=== PATIENT | female | born 1980 | race Caucasian/White ===

== ENCOUNTER 2019-03-13 13:17 | Inpatient (IN) | payer MEDICARE, MEDICAID ==
[~2019-03-13] VITALS: Ht 162.6 cm; Wt 68.7 kg
[~2019-03-13 13:17] MED LIST: FLUT16H NASAL; LAMO100 PO; LEVO25TA4 PO; QUET300T2 PO
[2019-03-13 14:23] LABS: BASOPHILS % (AUTO) 0.7 % (0.0-2.0); EOSINOPHILS % (AUTO) 0.5 % (1.0-6.0); HEMATOCRIT 47.4 % (36-46); HEMOGLOBIN 15.9 g/dL (12.0-16.0); LYMPHOCYTES # (AUTO) 2.4 K/uL (1.0-4.8); LYMPHOCYTES % (AUTO) 22.4 % (22.0-44.0); MEAN CORPUSCULAR HEMOGLOBIN 33.1 pg (26.0-34.0); MEAN CORPUSCULAR HGB CONC 33.5 G/dL (31.0-37.0); MEAN CORPUSCULAR VOLUME 99 fL (80-100); MONOCYTES # (AUTO) 0.6 K/uL (0.1-1.0); MONOCYTES % (AUTO) 5.4 % (2.0-9.0); NEUTROPHILS # (AUTO) 7.7 K/uL (1.8-7.7); PLATELET COUNT (AUTO) 284 K/uL (150-450); RED CELL DISTRIBUTION WIDTH 13.6 % (11.5-14.5)
[2019-03-13 14:33] LABS: ANION GAP 10 mmol/L (8-16); CALCIUM, TOTAL 9.3 mg/dL (8.8-10.5); CARBON DIOXIDE 25 mmol/L (22-29); CHLORIDE 101 mmol/L (98-107); CREATININE 0.73 mg/dL (0.60-1.30); GLOMERULAR FILTR. RATE CALC > 60 mL/min (>60); GLUCOSE,RANDOM 99 mg/dL (70-110); POTASSIUM 3.6 mmol/L (3.5-5.1); SODIUM SERUM 136 mmol/L (136-145); UREA NITROGEN, BLOOD 15 mg/dL (7-18)
[2019-03-13 14:49] LABS: ALANINE AMINOTRANSFERASE 26 U/L (12-78); ALBUMIN 3.7 g/dL (3.4-5.0); ALKALINE PHOSPHATASE 75 U/L (46-116); ASPARTATE AMINOTRANSFERASE 19 U/L (15-37); BILIRUBIN,TOTAL 0.4 mg/dL (0.1-1.0); HCG,QUANTITATIVE < 1 mIU/mL (0-6); THYROID STIMULATING HORMONE 0.04 uIU/mL (0.36-3.74); TOTAL PROTEIN, SERUM 7.3 g/dL (6.4-8.2)
[2019-03-13 14:50] LABS: ACETAMINOPHEN < 2 mcg/mL (10-30)
[2019-03-13 15:05] LABS: LITHIUM < 0.20 mmol/L (0.60-1.20)
[2019-03-13 15:11] LABS: SALICYLATE 5.3 mg/dL (2.8-20.0)
[2019-03-13] MEDS: DiphenhydrAMINE HCL 50 MG/ML VIAL IM ONE ×2 (15:21→15:53)
[2019-03-13] MEDS: LORazepam 2 MG/ML VIAL IM ONE ×2 (15:21→15:53)
[2019-03-13] MEDS: HALOPERIDOL LACTATE 5 MG/ML VIAL IM ONE ×2 (15:22→15:54)
[2019-03-13 15:50] LABS: FREE T4 (FREE THYROXINE) 1.44 ng/dL (0.76-1.46)
[2019-03-13 16:03] LABS: APPEARANCE,URINE CLOUDY (CLEAR); BILIRUBIN,URINE NEGATIVE (NEGATIVE); GLUCOSE, URINE (UA) NEGATIVE (NEGATIVE); KETONES,URINE NEGATIVE (NEGATIVE); LEUKOCYTE ESTERASE ,URINE SMALL (NEGATIVE); NITRATE,URINE NEGATIVE (NEGATIVE); OCCULT BLOOD,URINE LARGE (NEGATIVE); PROTEIN,URINE POS 1+ (NEGATIVE); UROBILINOGEN,URINE 0.2 mg/dL (<=1.0)
[2019-03-13 16:21] LABS: SQUAMOUS EPITHELIAL CELL,UR Moderate /LPF (None Seen)
[2019-03-13 16:23] LABS: BACTERIA,URINE Rare /HPF (None Seen)
[2019-03-13 16:27] LABS: AMPHET/METH SCREEN,URINE NEGATIVE (NEGATIVE); BARBITURATE SCREEN, URINE NEGATIVE (NEGATIVE); BENZODIAZEPINES SCREEN,URINE NEGATIVE (NEGATIVE); CANNABINOID SCREEN,URINE NEGATIVE (NEGATIVE); COCAINE SCREEN,URINE NEGATIVE (NEGATIVE); METHADONE SCREEN, URINE NEGATIVE (NEGATIVE); OPIATE SCREEN,URINE NEGATIVE (NEGATIVE)
[2019-03-13 16:31] LABS: PHENCYCLIDINE SCREEN,URINE NEGATIVE (NEGATIVE)
[2019-03-14 06:13] LABS: CHOL/HDL RATIO 2.1 (3.9-5.7); CHOLESTEROL 141 mg/dL (131-200); HCG,QUANTITATIVE < 1 mIU/mL (0-6); HDL CHOLESTEROL 66 mg/dL (40-60); LDL CHOL (CALC.) 61 mg/dL (0-130); TRIGLYCERIDES 68 mg/dL (15-150)
[2019-03-14 07:50] VITALS: BP 109/68
[2019-03-14 08:00] VITALS: BP 109/68
[2019-03-14] MEDS ORDERED: CloNIDine HCL 0.1 MG TABLET PO PRN (09:00)
[2019-03-14] MEDS ORDERED: NICOTINE 14 MG/24 HOUR PATCH TD PRN (09:00)
[2019-03-14] MEDS ORDERED: ALBUTEROL SULFATE HFA 90 MCG/PUFF 8 GM INHALER IH PRN (09:00)
[2019-03-14] MEDS ORDERED: DOCUSATE SODIUM 100 MG CAPSULE PO PRN (09:00)
[2019-03-14] MEDS ORDERED: PETROLATUM,WHITE 28 GM JELLY TP PRN (09:00)
[2019-03-14] MEDS ORDERED: MAG HYDROX/AL HYDROX/SIMETH ES 30 ML SUSPENSION UDCUP PO PRN (09:00)
[2019-03-14] MEDS ORDERED: ACETAMINOPHEN 325 MG TABLET PO PRN (09:00)
[2019-03-14] MEDS ORDERED: GuaiFENesin/D-METHORPHAN [SUGAR-FREE] 200-20MG/10 ML SYRUP UDCUP PO PRN (09:00)
[2019-03-14] MEDS ORDERED: LOPERAMIDE HCL 2 MG CAPSULE PO PRN (09:00)
[2019-03-14] MEDS ORDERED: IBUPROFEN 400 MG TABLET PO PRN (09:00)
[2019-03-14] MEDS: ONDANSETRON HCL 4 MG TABLET PO PRN (13:42)
[2019-03-14 16:45] VITALS: BP 105/75
[2019-03-14] MEDS: FLUTICASONE PROPIONATE 50 MCG/SPRAY 16 GM NASAL SPRAY NASAL SCH (21:00)
[2019-03-14] MEDS: LamoTRIgine 100 MG TABLET PO SCH (21:00)
[2019-03-14] MEDS: QUEtiapine FUMARATE 300 MG TABLET PO SCH (21:00)
[2019-03-14] MEDS: ZOLPIDEM TARTRATE 10 MG TABLET PO PRN (21:21)
[2019-03-15] MEDS: LEVOTHYROXINE SODIUM 100 MCG TABLET PO SCH (06:36)
[2019-03-15] MEDS ORDERED: LEVOTHYROXINE SODIUM 125 MCG TABLET PO SCH (07:00)
[2019-03-15 08:40] VITALS: BP 116/74
[2019-03-15] MEDS: CIPROFLOXACIN HCL 250 MG TABLET PO SCH ×2 (08:41→17:00)
[2019-03-15] MEDS: NICOTINE 14 MG/24 HOUR PATCH TD SCH (12:45)
[2019-03-15 16:12] VITALS: BP 129/74
[2019-03-15] MEDS: FLUTICASONE PROPIONATE 50 MCG/SPRAY 16 GM NASAL SPRAY NASAL SCH (20:04)
[2019-03-15] MEDS: LamoTRIgine 100 MG TABLET PO SCH (20:18)
[2019-03-15] MEDS: QUEtiapine FUMARATE 300 MG TABLET PO SCH (20:18)
[2019-03-16] MEDS: LEVOTHYROXINE SODIUM 100 MCG TABLET PO SCH (06:39)
[2019-03-16] MEDS: CIPROFLOXACIN HCL 250 MG TABLET PO SCH ×3 (08:43→17:00)
[2019-03-16] MEDS: NICOTINE 14 MG/24 HOUR PATCH TD SCH (08:50)
[2019-03-16 09:33] VITALS: BP 133/101
[2019-03-16] MEDS: FLUTICASONE PROPIONATE 50 MCG/SPRAY 16 GM NASAL SPRAY NASAL SCH (21:00)
[2019-03-16] MEDS: QUEtiapine FUMARATE 300 MG TABLET PO SCH (21:00)
[2019-03-16] MEDS: LamoTRIgine 100 MG TABLET PO SCH (21:00)
[2019-03-17] MEDS: LEVOTHYROXINE SODIUM 100 MCG TABLET PO SCH (06:55)
[2019-03-17 09:00] VITALS: BP 118/83
[2019-03-17] MEDS: HALOPERIDOL 5 MG TABLET PO PRN (11:22)
[2019-03-17] MEDS: CIPROFLOXACIN HCL 250 MG TABLET PO SCH ×2 (11:22→16:25)
[2019-03-17] MEDS: LORazepam 2 MG TABLET PO PRN (11:22)
[2019-03-17] MEDS: NICOTINE 14 MG/24 HOUR PATCH TD SCH (11:23)
[2019-03-17 16:00] VITALS: BP 127/74
[2019-03-17] MEDS: LamoTRIgine 100 MG TABLET PO SCH (20:21)
[2019-03-17] MEDS: QUEtiapine FUMARATE 300 MG TABLET PO SCH (20:21)
[2019-03-17] MEDS: FLUTICASONE PROPIONATE 50 MCG/SPRAY 16 GM NASAL SPRAY NASAL SCH (20:21)
[2019-03-18] MEDS: LEVOTHYROXINE SODIUM 100 MCG TABLET PO SCH (06:43)
[2019-03-18 08:18] VITALS: BP 137/95
[2019-03-18] MEDS: CIPROFLOXACIN HCL 250 MG TABLET PO SCH ×2 (09:02→16:34)
[2019-03-18] MEDS: LORazepam 2 MG TABLET PO PRN (09:04)
[2019-03-18] MEDS: HALOPERIDOL 5 MG TABLET PO PRN (09:04)
[2019-03-18] MEDS: NICOTINE 14 MG/24 HOUR PATCH TD SCH (09:05)
[2019-03-18] MEDS ORDERED: RisperiDONE 2 MG TABLET PO SCH (09:45)
[2019-03-18] MEDS: DIVALPROEX SODIUM 500 MG DR TABLET PO SCH ×2 (10:00→20:18)
[2019-03-18 16:57] VITALS: BP 121/69
[2019-03-18] MEDS ORDERED: HALOPERIDOL LACTATE 5 MG/ML VIAL IM PRN (17:30)
[2019-03-18] MEDS: FLUTICASONE PROPIONATE 50 MCG/SPRAY 16 GM NASAL SPRAY NASAL SCH (20:18)
[2019-03-18] MEDS: RisperiDONE 2 MG TABLET PO SCH (20:19)
[2019-03-19] MEDS: LEVOTHYROXINE SODIUM 100 MCG TABLET PO SCH (07:02)
[2019-03-19] MEDS: RisperiDONE 2 MG TABLET PO SCH ×3 (08:09→20:45)
[2019-03-19] MEDS: DIVALPROEX SODIUM 500 MG DR TABLET PO SCH ×2 (08:09→20:45)
[2019-03-19] MEDS: NICOTINE 14 MG/24 HOUR PATCH TD SCH (08:09)
[2019-03-19 08:10] VITALS: BP 119/71
[2019-03-19 16:52] VITALS: BP 131/77
[2019-03-19] MEDS: FLUTICASONE PROPIONATE 50 MCG/SPRAY 16 GM NASAL SPRAY NASAL SCH (20:44)
[2019-03-20] MEDS: LEVOTHYROXINE SODIUM 50 MCG TABLET PO SCH (06:43)
[2019-03-20 08:52] VITALS: BP 119/69
[2019-03-20] MEDS: NICOTINE 14 MG/24 HOUR PATCH TD SCH (09:31)
[2019-03-20] MEDS: DIVALPROEX SODIUM 500 MG DR TABLET PO SCH (09:31)
[2019-03-20] MEDS: RisperiDONE 2 MG TABLET PO SCH ×2 (09:31→20:05)
[2019-03-20] MEDS ORDERED: LEVO125 PO (11:51)
[2019-03-20 16:41] VITALS: BP 133/71
[2019-03-20 17:38] LABS: APPEARANCE,URINE CLEAR (CLEAR); BILIRUBIN,URINE NEGATIVE (NEGATIVE); GLUCOSE, URINE (UA) NEGATIVE (NEGATIVE); KETONES,URINE TRACE mg/dL (NEGATIVE); LEUKOCYTE ESTERASE ,URINE MODERATE (NEGATIVE); NITRATE,URINE NEGATIVE (NEGATIVE); OCCULT BLOOD,URINE NEGATIVE (NEGATIVE); PH,URINE 6.5 (5.0-8.0); PROTEIN,URINE NEGATIVE (NEGATIVE); UROBILINOGEN,URINE 0.2 mg/dL (<=1.0)
[2019-03-20 17:47] LABS: BACTERIA,URINE None Seen /HPF (None Seen); RBC,URINE None Seen /HPF (0-2); SQUAMOUS EPITHELIAL CELL,UR Moderate /LPF (None Seen)
[2019-03-20] MEDS: FLUTICASONE PROPIONATE 50 MCG/SPRAY 16 GM NASAL SPRAY NASAL SCH (20:05)
[2019-03-20] MEDS: VALPROIC ACID 250 MG/5 ML SYRUP UDCUP PO SCH (20:05)
[2019-03-21] MEDS: LEVOTHYROXINE SODIUM 50 MCG TABLET PO SCH (06:54)
[2019-03-21 08:04] VITALS: BP 113/76
[2019-03-21] MEDS: RisperiDONE 2 MG TABLET PO SCH ×2 (08:43→20:12)
[2019-03-21] MEDS: VALPROIC ACID 250 MG/5 ML SYRUP UDCUP PO SCH ×2 (08:44→20:12)
[2019-03-21] MEDS: NICOTINE 14 MG/24 HOUR PATCH TD SCH (08:51)
[2019-03-21 17:42] VITALS: BP 137/87
[2019-03-21] MEDS: FLUTICASONE PROPIONATE 50 MCG/SPRAY 16 GM NASAL SPRAY NASAL SCH ×2 (20:24→22:03)
[2019-03-22] MEDS: LORazepam 2 MG TABLET PO PRN (00:13)
[2019-03-22] MEDS: LEVOTHYROXINE SODIUM 50 MCG TABLET PO SCH (06:49)
[2019-03-22] MEDS: VALPROIC ACID 250 MG/5 ML SYRUP UDCUP PO SCH ×2 (07:56→20:17)
[2019-03-22] MEDS: RisperiDONE 2 MG TABLET PO SCH ×2 (07:56→20:17)
[2019-03-22] MEDS: NICOTINE 14 MG/24 HOUR PATCH TD SCH (08:02)
[2019-03-22 08:31] VITALS: BP 106/55
[2019-03-22 16:30] VITALS: BP 132/75
[2019-03-22] MEDS: FLUTICASONE PROPIONATE 50 MCG/SPRAY 16 GM NASAL SPRAY NASAL SCH (20:17)
[2019-03-23 02:00] VITALS: BP 129/68
[2019-03-23] MEDS: ZOLPIDEM TARTRATE 10 MG TABLET PO PRN (02:05)
[2019-03-23] MEDS: LEVOTHYROXINE SODIUM 50 MCG TABLET PO SCH (06:52)
[2019-03-23] MEDS: VALPROIC ACID 250 MG/5 ML SYRUP UDCUP PO SCH ×2 (08:32→20:39)
[2019-03-23] MEDS: NICOTINE 14 MG/24 HOUR PATCH TD SCH (08:32)
[2019-03-23] MEDS: HALOPERIDOL 5 MG TABLET PO PRN (08:33)
[2019-03-23 08:34] VITALS: BP 134/87
[2019-03-23] MEDS: LORazepam 2 MG TABLET PO PRN (08:34)
[2019-03-23] MEDS: RisperiDONE 2 MG TABLET PO SCH ×2 (09:58→20:39)
[2019-03-23 17:07] VITALS: BP 125/90
[2019-03-23] MEDS: FLUTICASONE PROPIONATE 50 MCG/SPRAY 16 GM NASAL SPRAY NASAL SCH (20:39)
[2019-03-24] MEDS: LEVOTHYROXINE SODIUM 50 MCG TABLET PO SCH (07:07)
[2019-03-24] MEDS: HALOPERIDOL 5 MG TABLET PO PRN (07:52)
[2019-03-24] MEDS: LORazepam 2 MG TABLET PO PRN ×2 (07:52→21:41)
[2019-03-24] MEDS: VALPROIC ACID 250 MG/5 ML SYRUP UDCUP PO SCH ×2 (07:52→20:58)
[2019-03-24] MEDS: RisperiDONE 2 MG TABLET PO SCH ×2 (07:52→20:59)
[2019-03-24] MEDS: NICOTINE 14 MG/24 HOUR PATCH TD SCH (07:53)
[2019-03-24 08:10] VITALS: BP 122/78
[2019-03-24 16:52] VITALS: BP 113/75
[2019-03-24] MEDS: FLUTICASONE PROPIONATE 50 MCG/SPRAY 16 GM NASAL SPRAY NASAL SCH (20:57)
[2019-03-25] MEDS: LEVOTHYROXINE SODIUM 50 MCG TABLET PO SCH (07:03)
[2019-03-25] MEDS: RisperiDONE 2 MG TABLET PO SCH ×2 (07:56→20:01)
[2019-03-25] MEDS: VALPROIC ACID 250 MG/5 ML SYRUP UDCUP PO SCH ×2 (07:56→20:01)
[2019-03-25] MEDS: HALOPERIDOL 5 MG TABLET PO PRN (07:56)
[2019-03-25] MEDS: NICOTINE 14 MG/24 HOUR PATCH TD SCH (07:56)
[2019-03-25] MEDS: LORazepam 2 MG TABLET PO PRN (07:56)
[2019-03-25 08:00] VITALS: BP 109/74
[2019-03-25] MEDS ORDERED: *PATIENT'S OWN MED [ENTER DRUG, DOSE, FREQUENCY IN COMMENTS] CLINICAL ONE (13:45)
[2019-03-25 16:00] VITALS: BP 118/79
[2019-03-25] MEDS: INTROVALE PO SCH (16:29)
[2019-03-25] MEDS: FLUTICASONE PROPIONATE 50 MCG/SPRAY 16 GM NASAL SPRAY NASAL SCH (20:01)
[2019-03-26] MEDS: LEVOTHYROXINE SODIUM 50 MCG TABLET PO SCH (07:00)
[2019-03-26 08:00] VITALS: BP 117/72
[2019-03-26] MEDS: INTROVALE PO SCH (08:20)
[2019-03-26] MEDS: VALPROIC ACID 250 MG/5 ML SYRUP UDCUP PO SCH ×2 (08:21→20:53)
[2019-03-26] MEDS: RisperiDONE 2 MG TABLET PO SCH ×2 (08:21→20:52)
[2019-03-26] MEDS: NICOTINE 14 MG/24 HOUR PATCH TD SCH (08:25)
[2019-03-26] MEDS: LORazepam 2 MG TABLET PO PRN (15:58)
[2019-03-26 16:56] VITALS: BP 131/75
[2019-03-26] MEDS: FLUTICASONE PROPIONATE 50 MCG/SPRAY 16 GM NASAL SPRAY NASAL SCH (20:51)
[2019-03-27] MEDS: LEVOTHYROXINE SODIUM 50 MCG TABLET PO SCH (07:12)
[2019-03-27 08:02] VITALS: BP 135/74
[2019-03-27] MEDS: INTROVALE PO SCH (08:03)
[2019-03-27] MEDS: VALPROIC ACID 250 MG/5 ML SYRUP UDCUP PO SCH ×2 (08:04→21:04)
[2019-03-27] MEDS: ONDANSETRON HCL 4 MG TABLET PO PRN (08:04)
[2019-03-27] MEDS: RisperiDONE 2 MG TABLET PO SCH ×2 (08:04→21:03)
[2019-03-27] MEDS: NICOTINE 14 MG/24 HOUR PATCH TD SCH (08:09)
[2019-03-27 16:00] VITALS: BP 121/74
[2019-03-27] MEDS: FLUTICASONE PROPIONATE 50 MCG/SPRAY 16 GM NASAL SPRAY NASAL SCH (21:04)
[2019-03-28] MEDS: LEVOTHYROXINE SODIUM 50 MCG TABLET PO SCH (06:33)
[2019-03-28 08:05] VITALS: BP 115/69
[2019-03-28] MEDS: INTROVALE PO SCH (08:12)
[2019-03-28] MEDS: VALPROIC ACID 250 MG/5 ML SYRUP UDCUP PO SCH ×2 (08:13→21:39)
[2019-03-28] MEDS: HALOPERIDOL 5 MG TABLET PO PRN (08:13)
[2019-03-28] MEDS: NICOTINE 14 MG/24 HOUR PATCH TD SCH (08:13)
[2019-03-28] MEDS: RisperiDONE 2 MG TABLET PO SCH ×2 (08:13→21:40)
[2019-03-28] MEDS: LORazepam 2 MG TABLET PO PRN (08:13)
[2019-03-28 16:35] VITALS: BP 111/61
[2019-03-28] MEDS: FLUTICASONE PROPIONATE 50 MCG/SPRAY 16 GM NASAL SPRAY NASAL SCH (21:40)
[2019-03-28] MEDS: ZOLPIDEM TARTRATE 10 MG TABLET PO PRN (22:21)
[2019-03-29] MEDS: LEVOTHYROXINE SODIUM 50 MCG TABLET PO SCH (06:32)
[2019-03-29 08:50] VITALS: BP 106/66
[2019-03-29] MEDS: NICOTINE 14 MG/24 HOUR PATCH TD SCH (09:19)
[2019-03-29] MEDS: INTROVALE PO SCH (09:19)
[2019-03-29] MEDS: HALOPERIDOL 5 MG TABLET PO PRN (09:22)
[2019-03-29] MEDS: LORazepam 2 MG TABLET PO PRN (09:22)
[2019-03-29] MEDS: RisperiDONE 2 MG TABLET PO SCH ×2 (09:22→21:26)
[2019-03-29] MEDS: VALPROIC ACID 250 MG/5 ML SYRUP UDCUP PO SCH ×2 (09:28→21:26)
[2019-03-29 16:00] VITALS: BP 140/70
[2019-03-29] MEDS: FLUTICASONE PROPIONATE 50 MCG/SPRAY 16 GM NASAL SPRAY NASAL SCH (21:26)
[2019-03-29] MEDS: ZOLPIDEM TARTRATE 10 MG TABLET PO PRN (22:50)
[2019-03-30] MEDS: LEVOTHYROXINE SODIUM 50 MCG TABLET PO SCH (06:32)
[2019-03-30 08:10] VITALS: BP 132/87
[2019-03-30] MEDS: RisperiDONE 2 MG TABLET PO SCH ×2 (08:47→21:23)
[2019-03-30] MEDS: VALPROIC ACID 250 MG/5 ML SYRUP UDCUP PO SCH ×2 (08:47→21:23)
[2019-03-30] MEDS: INTROVALE PO SCH (08:51)
[2019-03-30] MEDS: NICOTINE 14 MG/24 HOUR PATCH TD SCH (08:57)
[2019-03-30] MEDS: LORazepam 2 MG TABLET PO PRN (16:14)
[2019-03-30 16:15] VITALS: BP 128/82
[2019-03-30] MEDS: FLUTICASONE PROPIONATE 50 MCG/SPRAY 16 GM NASAL SPRAY NASAL SCH (21:23)
[2019-03-31] MEDS: LEVOTHYROXINE SODIUM 50 MCG TABLET PO SCH (06:40)
[2019-03-31] MEDS: NICOTINE 14 MG/24 HOUR PATCH TD SCH (07:36)
[2019-03-31] MEDS: INTROVALE PO SCH (07:36)
[2019-03-31] MEDS: LORazepam 2 MG TABLET PO PRN (07:36)
[2019-03-31] MEDS: VALPROIC ACID 250 MG/5 ML SYRUP UDCUP PO SCH ×2 (07:36→20:12)
[2019-03-31] MEDS: RisperiDONE 2 MG TABLET PO SCH ×2 (07:36→20:13)
[2019-03-31 08:44] VITALS: BP 103/65
[2019-03-31 16:00] VITALS: BP 119/66
[2019-03-31] MEDS: FLUTICASONE PROPIONATE 50 MCG/SPRAY 16 GM NASAL SPRAY NASAL SCH (20:13)
[2019-04-01] MEDS: LEVOTHYROXINE SODIUM 50 MCG TABLET PO SCH (06:35)
[2019-04-01 08:00] VITALS: BP 128/62
[2019-04-01] MEDS: INTROVALE PO SCH (08:05)
[2019-04-01] MEDS: VALPROIC ACID 250 MG/5 ML SYRUP UDCUP PO SCH ×2 (08:06→20:27)
[2019-04-01] MEDS: RisperiDONE 2 MG TABLET PO SCH ×2 (08:06→20:27)
[2019-04-01] MEDS: NICOTINE 14 MG/24 HOUR PATCH TD SCH (08:07)
[2019-04-01 18:49] VITALS: BP 111/65
[2019-04-01] MEDS: FLUTICASONE PROPIONATE 50 MCG/SPRAY 16 GM NASAL SPRAY NASAL SCH (20:27)
[2019-04-02] MEDS: LEVOTHYROXINE SODIUM 50 MCG TABLET PO SCH (07:11)
[2019-04-02] MEDS: INTROVALE PO SCH (08:20)
[2019-04-02] MEDS: NICOTINE 14 MG/24 HOUR PATCH TD SCH (08:25)
[2019-04-02] MEDS: RisperiDONE 2 MG TABLET PO SCH ×2 (08:25→21:33)
[2019-04-02] MEDS: VALPROIC ACID 250 MG/5 ML SYRUP UDCUP PO SCH ×2 (08:26→21:33)
[2019-04-02 10:06] VITALS: BP 105/78
[2019-04-02 16:11] VITALS: BP 116/72
[2019-04-02] MEDS: FLUTICASONE PROPIONATE 50 MCG/SPRAY 16 GM NASAL SPRAY NASAL SCH (21:33)
[2019-04-03] MEDS: LEVOTHYROXINE SODIUM 50 MCG TABLET PO SCH (06:42)
[2019-04-03] MEDS: INTROVALE PO SCH (07:29)
[2019-04-03] MEDS: VALPROIC ACID 250 MG/5 ML SYRUP UDCUP PO SCH ×2 (07:29→20:26)
[2019-04-03] MEDS: RisperiDONE 2 MG TABLET PO SCH ×2 (07:29→20:26)
[2019-04-03] MEDS: NICOTINE 14 MG/24 HOUR PATCH TD SCH (07:40)
[2019-04-03 08:02] VITALS: BP 121/71
[2019-04-03 16:10] VITALS: BP 127/70
[2019-04-03] MEDS: LORazepam 2 MG TABLET PO PRN (20:25)
[2019-04-03] MEDS: FLUTICASONE PROPIONATE 50 MCG/SPRAY 16 GM NASAL SPRAY NASAL SCH (20:26)
[2019-04-03] MEDS: ZOLPIDEM TARTRATE 10 MG TABLET PO PRN (22:19)
[2019-04-04] MEDS: LEVOTHYROXINE SODIUM 50 MCG TABLET PO SCH (06:36)
[2019-04-04 08:00] VITALS: BP 106/68
[2019-04-04] MEDS: VALPROIC ACID 250 MG/5 ML SYRUP UDCUP PO SCH ×2 (08:15→20:43)
[2019-04-04] MEDS: INTROVALE PO SCH (08:16)
[2019-04-04] MEDS: RisperiDONE 2 MG TABLET PO SCH ×2 (08:16→20:43)
[2019-04-04] MEDS: NICOTINE 14 MG/24 HOUR PATCH TD SCH (08:16)
[2019-04-04] MEDS: FLUTICASONE PROPIONATE 50 MCG/SPRAY 16 GM NASAL SPRAY NASAL SCH (20:42)
[2019-04-04] MEDS: LORazepam 2 MG TABLET PO PRN (21:46)
[2019-04-05] MEDS: LEVOTHYROXINE SODIUM 50 MCG TABLET PO SCH (06:37)
[2019-04-05 08:00] VITALS: BP 102/61
[2019-04-05] MEDS: NICOTINE 14 MG/24 HOUR PATCH TD SCH (08:18)
[2019-04-05] MEDS: RisperiDONE 2 MG TABLET PO SCH ×2 (08:18→21:00)
[2019-04-05] MEDS: VALPROIC ACID 250 MG/5 ML SYRUP UDCUP PO SCH ×2 (08:18→21:00)
[2019-04-05] MEDS: INTROVALE PO SCH (08:19)
[2019-04-05 16:55] VITALS: BP 120/81
[2019-04-05] MEDS: FLUTICASONE PROPIONATE 50 MCG/SPRAY 16 GM NASAL SPRAY NASAL SCH (21:00)
[2019-04-06] MEDS: LEVOTHYROXINE SODIUM 50 MCG TABLET PO SCH (06:53)
[2019-04-06 08:00] VITALS: BP 124/69
[2019-04-06] MEDS: VALPROIC ACID 250 MG/5 ML SYRUP UDCUP PO SCH (08:28)
[2019-04-06] MEDS: RisperiDONE 2 MG TABLET PO SCH ×2 (08:28→20:03)
[2019-04-06] MEDS: NICOTINE 14 MG/24 HOUR PATCH TD SCH (08:29)
[2019-04-06] MEDS: INTROVALE PO SCH (09:50)
[2019-04-06] MEDS: LamoTRIgine 25 MG TABLET PO SCH (13:40)
[2019-04-06] MEDS: LORazepam 2 MG TABLET PO PRN (17:43)
[2019-04-06] MEDS: FLUTICASONE PROPIONATE 50 MCG/SPRAY 16 GM NASAL SPRAY NASAL SCH (20:04)
[2019-04-07] MEDS: LEVOTHYROXINE SODIUM 50 MCG TABLET PO SCH (06:46)
[2019-04-07] MEDS: RisperiDONE 2 MG TABLET PO SCH ×2 (08:34→20:29)
[2019-04-07] MEDS: LamoTRIgine 25 MG TABLET PO SCH (08:34)
[2019-04-07] MEDS: INTROVALE PO SCH (08:34)
[2019-04-07 08:35] VITALS: BP 113/77
[2019-04-07] MEDS: NICOTINE 14 MG/24 HOUR PATCH TD SCH (08:35)
[2019-04-07 18:54] VITALS: BP 128/80
[2019-04-07] MEDS: FLUTICASONE PROPIONATE 50 MCG/SPRAY 16 GM NASAL SPRAY NASAL SCH (20:29)
[2019-04-08] MEDS: LEVOTHYROXINE SODIUM 50 MCG TABLET PO SCH (07:09)
[2019-04-08 08:00] VITALS: BP 113/69
[2019-04-08] MEDS: NICOTINE 14 MG/24 HOUR PATCH TD SCH (08:17)
[2019-04-08] MEDS: LamoTRIgine 25 MG TABLET PO SCH (08:17)
[2019-04-08] MEDS: RisperiDONE 2 MG TABLET PO SCH ×2 (08:17→21:19)
[2019-04-08] MEDS: INTROVALE PO SCH (08:17)
[2019-04-08 16:05] VITALS: BP 140/80
[2019-04-08] MEDS: FLUTICASONE PROPIONATE 50 MCG/SPRAY 16 GM NASAL SPRAY NASAL SCH (21:18)
[2019-04-09] MEDS: LEVOTHYROXINE SODIUM 50 MCG TABLET PO SCH (07:03)
[2019-04-09 08:00] VITALS: BP 105/69
[2019-04-09] MEDS: INTROVALE PO SCH (08:00)
[2019-04-09] MEDS: RisperiDONE 2 MG TABLET PO SCH ×2 (08:01→20:36)
[2019-04-09] MEDS: LamoTRIgine 25 MG TABLET PO SCH (08:01)
[2019-04-09] MEDS: NICOTINE 14 MG/24 HOUR PATCH TD SCH (08:02)
[2019-04-09 16:11] VITALS: BP 122/73
[2019-04-09] MEDS: FLUTICASONE PROPIONATE 50 MCG/SPRAY 16 GM NASAL SPRAY NASAL SCH (20:36)
[2019-04-10] MEDS: LEVOTHYROXINE SODIUM 50 MCG TABLET PO SCH (06:46)
[2019-04-10 08:09] VITALS: BP 114/71
[2019-04-10] MEDS: LamoTRIgine 25 MG TABLET PO SCH (08:13)
[2019-04-10] MEDS: NICOTINE 14 MG/24 HOUR PATCH TD SCH (08:13)
[2019-04-10] MEDS: RisperiDONE 2 MG TABLET PO SCH ×2 (08:13→21:21)
[2019-04-10] MEDS: INTROVALE PO SCH (08:14)
[2019-04-10 16:41] VITALS: BP 121/70
[2019-04-10] MEDS: FLUTICASONE PROPIONATE 50 MCG/SPRAY 16 GM NASAL SPRAY NASAL SCH (21:21)
[2019-04-11] MEDS: LEVOTHYROXINE SODIUM 50 MCG TABLET PO SCH (06:42)
[2019-04-11] MEDS: INTROVALE PO SCH (07:47)
[2019-04-11] MEDS: LamoTRIgine 25 MG TABLET PO SCH (07:47)
[2019-04-11] MEDS: RisperiDONE 2 MG TABLET PO SCH ×2 (07:48→20:36)
[2019-04-11] MEDS: NICOTINE 14 MG/24 HOUR PATCH TD SCH (07:49)
[2019-04-11 08:24] VITALS: BP 105/59
[2019-04-11 16:55] VITALS: BP 119/73
[2019-04-11] MEDS: FLUTICASONE PROPIONATE 50 MCG/SPRAY 16 GM NASAL SPRAY NASAL SCH (20:36)
[2019-04-12] MEDS: ZOLPIDEM TARTRATE 10 MG TABLET PO PRN (01:41)
[2019-04-12] MEDS: LEVOTHYROXINE SODIUM 50 MCG TABLET PO SCH (06:40)
[2019-04-12] MEDS: NICOTINE 14 MG/24 HOUR PATCH TD SCH (07:54)
[2019-04-12] MEDS: RisperiDONE 2 MG TABLET PO SCH ×2 (07:54→20:41)
[2019-04-12] MEDS: INTROVALE PO SCH (07:55)
[2019-04-12] MEDS: LamoTRIgine 25 MG TABLET PO SCH (07:55)
[2019-04-12 09:42] VITALS: BP 101/62
[2019-04-12 16:00] VITALS: BP 124/79
[2019-04-12] MEDS: FLUTICASONE PROPIONATE 50 MCG/SPRAY 16 GM NASAL SPRAY NASAL SCH (20:41)
[2019-04-13] MEDS: LEVOTHYROXINE SODIUM 50 MCG TABLET PO SCH (06:30)
[2019-04-13] MEDS: RisperiDONE 2 MG TABLET PO SCH ×2 (08:33→21:25)
[2019-04-13] MEDS: INTROVALE PO SCH (08:33)
[2019-04-13] MEDS: LamoTRIgine 25 MG TABLET PO SCH (08:33)
[2019-04-13] MEDS: NICOTINE 14 MG/24 HOUR PATCH TD SCH (08:40)
[2019-04-13 09:45] VITALS: BP 113/74
[2019-04-13 16:30] VITALS: BP 119/71
[2019-04-13] MEDS: FLUTICASONE PROPIONATE 50 MCG/SPRAY 16 GM NASAL SPRAY NASAL SCH (21:24)
[2019-04-14 05:03] VITALS: BP 96/62
[2019-04-14] MEDS: LEVOTHYROXINE SODIUM 50 MCG TABLET PO SCH (06:53)
[2019-04-14] MEDS: LamoTRIgine 25 MG TABLET PO SCH (07:48)
[2019-04-14] MEDS: INTROVALE PO SCH (07:48)
[2019-04-14] MEDS: RisperiDONE 2 MG TABLET PO SCH ×2 (07:49→21:03)
[2019-04-14] MEDS: NICOTINE 14 MG/24 HOUR PATCH TD SCH (07:51)
[2019-04-14 10:03] VITALS: BP 133/77
[2019-04-14 19:30] VITALS: BP 119/67
[2019-04-14] MEDS: FLUTICASONE PROPIONATE 50 MCG/SPRAY 16 GM NASAL SPRAY NASAL SCH (21:03)
[2019-04-15 01:20] VITALS: BP 118/66
[2019-04-15 06:15] LABS: EOSINOPHILS % (AUTO) 2.2 % (1.0-6.0); HEMATOCRIT 41.8 % (36-46); HEMOGLOBIN 13.9 g/dL (12.0-16.0); LYMPHOCYTES # (AUTO) 3.2 K/uL (1.0-4.8); LYMPHOCYTES % (AUTO) 44.7 % (22.0-44.0); MEAN CORPUSCULAR HEMOGLOBIN 33.1 pg (26.0-34.0); MEAN CORPUSCULAR HGB CONC 33.3 G/dL (31.0-37.0); MEAN CORPUSCULAR VOLUME 99 fL (80-100); MONOCYTES # (AUTO) 0.7 K/uL (0.1-1.0); NEUTROPHILS # (AUTO) 3.1 K/uL (1.8-7.7); NEUTROPHILS % (AUTO) 43.1 % (40.0-70.0); PLATELET COUNT (AUTO) 238 K/uL (150-450); RED CELL DISTRIBUTION WIDTH 13.8 % (11.5-14.5)
[2019-04-15 06:29] LABS: ANION GAP 8 mmol/L (8-16); CALCIUM, TOTAL 8.9 mg/dL (8.8-10.5); CARBON DIOXIDE 26 mmol/L (22-29); CHLORIDE 104 mmol/L (98-107); CREATININE 0.76 mg/dL (0.60-1.30); GLOMERULAR FILTR. RATE CALC > 60 mL/min (>60); GLUCOSE,RANDOM 79 mg/dL (70-110); POTASSIUM 4.2 mmol/L (3.5-5.1); SODIUM SERUM 138 mmol/L (136-145); UREA NITROGEN, BLOOD 12 mg/dL (7-18)
[2019-04-15] MEDS: LEVOTHYROXINE SODIUM 50 MCG TABLET PO SCH (06:36)
[2019-04-15 08:00] VITALS: BP 102/64
[2019-04-15] MEDS: RisperiDONE 2 MG TABLET PO SCH (08:05)
[2019-04-15] MEDS: LamoTRIgine 25 MG TABLET PO SCH (08:05)
[2019-04-15] MEDS: INTROVALE PO SCH (08:05)
[2019-04-15] MEDS: NICOTINE 14 MG/24 HOUR PATCH TD SCH (08:06)
[2019-04-15] MEDS: FLUTICASONE PROPIONATE 50 MCG/SPRAY 16 GM NASAL SPRAY NASAL SCH (21:10)
[2019-04-15] MEDS: QUEtiapine FUMARATE 300 MG TABLET PO SCH (21:11)
[2019-04-15 22:50] VITALS: BP 132/79
[2019-04-16] MEDS: LEVOTHYROXINE SODIUM 50 MCG TABLET PO SCH (06:36)
[2019-04-16] MEDS: LamoTRIgine 25 MG TABLET PO SCH (07:52)
[2019-04-16] MEDS: NICOTINE 14 MG/24 HOUR PATCH TD SCH (07:52)
[2019-04-16] MEDS: INTROVALE PO SCH (07:53)
[2019-04-16 08:00] VITALS: BP 124/72
[2019-04-16] MEDS: QUEtiapine FUMARATE 300 MG TABLET PO SCH (21:04)
[2019-04-16] MEDS: FLUTICASONE PROPIONATE 50 MCG/SPRAY 16 GM NASAL SPRAY NASAL SCH (21:04)
[2019-04-17] MEDS: LEVOTHYROXINE SODIUM 50 MCG TABLET PO SCH (06:04)
[2019-04-17 08:00] VITALS: BP 108/68
[2019-04-17] MEDS: INTROVALE PO SCH (08:24)
[2019-04-17] MEDS: NICOTINE 14 MG/24 HOUR PATCH TD SCH (08:24)
[2019-04-17] MEDS: LamoTRIgine 25 MG TABLET PO SCH (08:24)
[2019-04-17 16:58] VITALS: BP 124/79
[2019-04-17] MEDS: FLUTICASONE PROPIONATE 50 MCG/SPRAY 16 GM NASAL SPRAY NASAL SCH (21:29)
[2019-04-17] MEDS: QUEtiapine FUMARATE 300 MG TABLET PO SCH (21:29)
[2019-04-18] MEDS: LEVOTHYROXINE SODIUM 50 MCG TABLET PO SCH (06:41)
[2019-04-18] MEDS: INTROVALE PO SCH (08:43)
[2019-04-18] MEDS: LamoTRIgine 25 MG TABLET PO SCH (08:43)
[2019-04-18] MEDS: NICOTINE 14 MG/24 HOUR PATCH TD SCH (08:48)
[2019-04-18 09:57] VITALS: BP 121/72
[2019-04-18 17:00] VITALS: BP 136/94
[2019-04-18] MEDS: QUEtiapine FUMARATE 300 MG TABLET PO SCH (21:35)
[2019-04-18] MEDS: FLUTICASONE PROPIONATE 50 MCG/SPRAY 16 GM NASAL SPRAY NASAL SCH (21:35)
[2019-04-19] MEDS: LEVOTHYROXINE SODIUM 50 MCG TABLET PO SCH (06:45)
[2019-04-19 08:40] VITALS: BP 91/63
[2019-04-19] MEDS: LamoTRIgine 25 MG TABLET PO SCH (08:58)
[2019-04-19] MEDS: INTROVALE PO SCH (08:58)
[2019-04-19] MEDS: FLUTICASONE PROPIONATE 50 MCG/SPRAY 16 GM NASAL SPRAY NASAL SCH ×2 (08:59→20:21)
[2019-04-19] MEDS: NICOTINE 14 MG/24 HOUR PATCH TD SCH (08:59)
[2019-04-19 11:07] LABS: BILIRUBIN,URINE NEGATIVE (NEGATIVE); GLUCOSE, URINE (UA) NEGATIVE (NEGATIVE); KETONES,URINE NEGATIVE (NEGATIVE); NITRATE,URINE NEGATIVE (NEGATIVE); OCCULT BLOOD,URINE NEGATIVE (NEGATIVE); PROTEIN,URINE NEGATIVE (NEGATIVE); UROBILINOGEN,URINE 0.2 mg/dL (<=1.0)
[2019-04-19 11:24] LABS: APPEARANCE,URINE HAZY (CLEAR); BACTERIA,URINE None Seen /HPF (None Seen); LEUKOCYTE ESTERASE ,URINE MODERATE (NEGATIVE); RBC,URINE None Seen /HPF (0-2)
[2019-04-19 11:25] LABS: SQUAMOUS EPITHELIAL CELL,UR Few /LPF (None Seen)
[2019-04-19 19:07] VITALS: BP 125/69
[2019-04-19] MEDS: QUEtiapine FUMARATE 300 MG TABLET PO SCH (20:21)
[2019-04-20] MEDS: LEVOTHYROXINE SODIUM 50 MCG TABLET PO SCH (06:52)
[2019-04-20] MEDS: INTROVALE PO SCH (07:59)
[2019-04-20] MEDS: LamoTRIgine 25 MG TABLET PO SCH (07:59)
[2019-04-20] MEDS: FLUTICASONE PROPIONATE 50 MCG/SPRAY 16 GM NASAL SPRAY NASAL SCH ×2 (08:00→21:47)
[2019-04-20] MEDS: NICOTINE 14 MG/24 HOUR PATCH TD SCH (08:01)
[2019-04-20 09:52] VITALS: BP 101/64
[2019-04-20 16:18] VITALS: BP 115/68
[2019-04-20] MEDS: MAGNESIUM HYDROXIDE SUSPENSION 30 ML UDCUP PO PRN (17:58)
[2019-04-20] MEDS: QUEtiapine FUMARATE 300 MG TABLET PO SCH (21:47)
[2019-04-21] MEDS: LEVOTHYROXINE SODIUM 50 MCG TABLET PO SCH (06:54)
[2019-04-21 08:00] VITALS: BP 108/62
[2019-04-21] MEDS: INTROVALE PO SCH (08:00)
[2019-04-21] MEDS: LamoTRIgine 25 MG TABLET PO SCH (08:02)
[2019-04-21] MEDS: FLUTICASONE PROPIONATE 50 MCG/SPRAY 16 GM NASAL SPRAY NASAL SCH ×2 (08:03→21:40)
[2019-04-21] MEDS: NICOTINE 14 MG/24 HOUR PATCH TD SCH (08:06)
[2019-04-21 16:17] VITALS: BP 117/67
[2019-04-21] MEDS: QUEtiapine FUMARATE 300 MG TABLET PO SCH (21:39)
[2019-04-22] MEDS: LEVOTHYROXINE SODIUM 50 MCG TABLET PO SCH (06:51)
[2019-04-22 08:00] VITALS: BP 112/65
[2019-04-22] MEDS: LamoTRIgine 25 MG TABLET PO SCH (08:03)
[2019-04-22] MEDS: INTROVALE PO SCH (08:03)
[2019-04-22] MEDS: NICOTINE 14 MG/24 HOUR PATCH TD SCH (08:09)
[2019-04-22] MEDS: FLUTICASONE PROPIONATE 50 MCG/SPRAY 16 GM NASAL SPRAY NASAL SCH ×2 (08:20→21:01)
[2019-04-22 18:11] VITALS: BP 101/63
[2019-04-22] MEDS: QUEtiapine FUMARATE 300 MG TABLET PO SCH (21:01)
[2019-04-23] MEDS: LEVOTHYROXINE SODIUM 50 MCG TABLET PO SCH (06:02)
[2019-04-23] MEDS: NICOTINE 14 MG/24 HOUR PATCH TD SCH (07:57)
[2019-04-23] MEDS: LamoTRIgine 25 MG TABLET PO SCH (07:57)
[2019-04-23] MEDS: INTROVALE PO SCH (07:57)
[2019-04-23] MEDS: FLUTICASONE PROPIONATE 50 MCG/SPRAY 16 GM NASAL SPRAY NASAL SCH ×2 (07:58→21:41)
[2019-04-23 08:00] VITALS: BP 96/68
[2019-04-23] MEDS: LEVOFLOXACIN 500 MG TABLET PO SCH (08:03)
[2019-04-23 16:00] VITALS: BP 106/68
[2019-04-23] MEDS: MAGNESIUM HYDROXIDE SUSPENSION 30 ML UDCUP PO PRN (20:06)
[2019-04-23] MEDS: QUEtiapine FUMARATE 300 MG TABLET PO SCH (21:41)
[2019-04-24] MEDS: LEVOTHYROXINE SODIUM 50 MCG TABLET PO SCH (06:59)
[2019-04-24 08:00] VITALS: BP 98/63
[2019-04-24] MEDS: INTROVALE PO SCH (08:05)
[2019-04-24] MEDS: LEVOFLOXACIN 500 MG TABLET PO SCH (08:06)
[2019-04-24] MEDS: LamoTRIgine 25 MG TABLET PO SCH (08:06)
[2019-04-24] MEDS: FLUTICASONE PROPIONATE 50 MCG/SPRAY 16 GM NASAL SPRAY NASAL SCH ×2 (08:06→21:19)
[2019-04-24] MEDS: NICOTINE 14 MG/24 HOUR PATCH TD SCH (08:07)
[2019-04-24 16:45] VITALS: BP 101/65
[2019-04-24] MEDS: QUEtiapine FUMARATE 300 MG TABLET PO SCH (21:19)
[2019-04-25] MEDS: LEVOTHYROXINE SODIUM 50 MCG TABLET PO SCH (06:59)
[2019-04-25] MEDS: LEVOFLOXACIN 500 MG TABLET PO SCH (08:16)
[2019-04-25] MEDS: LamoTRIgine 25 MG TABLET PO SCH (08:16)
[2019-04-25] MEDS: INTROVALE PO SCH (08:16)
[2019-04-25] MEDS: FLUTICASONE PROPIONATE 50 MCG/SPRAY 16 GM NASAL SPRAY NASAL SCH ×2 (08:17→21:40)
[2019-04-25] MEDS: NICOTINE 14 MG/24 HOUR PATCH TD SCH (08:20)
[2019-04-25 08:38] VITALS: BP 115/71
[2019-04-25 18:22] VITALS: BP 111/67
[2019-04-25] MEDS: QUEtiapine FUMARATE 300 MG TABLET PO SCH (21:33)
[2019-04-26] MEDS: LEVOTHYROXINE SODIUM 50 MCG TABLET PO SCH (07:00)
[2019-04-26] MEDS: LamoTRIgine 25 MG TABLET PO SCH (07:59)
[2019-04-26] MEDS: INTROVALE PO SCH (07:59)
[2019-04-26] MEDS: LEVOFLOXACIN 500 MG TABLET PO SCH (08:00)
[2019-04-26] MEDS: FLUTICASONE PROPIONATE 50 MCG/SPRAY 16 GM NASAL SPRAY NASAL SCH ×2 (08:00→22:06)
[2019-04-26] MEDS: NICOTINE 14 MG/24 HOUR PATCH TD SCH (08:00)
[2019-04-26 16:32] VITALS: BP 116/69
[2019-04-26] MEDS: QUEtiapine FUMARATE 300 MG TABLET PO SCH (22:06)
[2019-04-27] MEDS: LEVOTHYROXINE SODIUM 50 MCG TABLET PO SCH (07:06)
[2019-04-27 08:00] VITALS: BP 98/65
[2019-04-27] MEDS: INTROVALE PO SCH (08:55)
[2019-04-27] MEDS: LamoTRIgine 25 MG TABLET PO SCH (08:55)
[2019-04-27] MEDS: FLUTICASONE PROPIONATE 50 MCG/SPRAY 16 GM NASAL SPRAY NASAL SCH ×2 (10:32→21:36)
[2019-04-27] MEDS: NICOTINE 14 MG/24 HOUR PATCH TD SCH (10:33)
[2019-04-27 16:36] LABS: APPEARANCE,URINE CLEAR (CLEAR); BILIRUBIN,URINE NEGATIVE (NEGATIVE); GLUCOSE, URINE (UA) NEGATIVE (NEGATIVE); KETONES,URINE NEGATIVE (NEGATIVE); LEUKOCYTE ESTERASE ,URINE SMALL (NEGATIVE); NITRATE,URINE NEGATIVE (NEGATIVE); OCCULT BLOOD,URINE NEGATIVE (NEGATIVE); PH,URINE 6.5 (5.0-8.0); PROTEIN,URINE NEGATIVE (NEGATIVE); UROBILINOGEN,URINE 0.2 mg/dL (<=1.0)
[2019-04-27 16:46] LABS: BACTERIA,URINE None Seen /HPF (None Seen); RBC,URINE None Seen /HPF (0-2); SQUAMOUS EPITHELIAL CELL,UR Few /LPF (None Seen); WBC,URINE 0-2 /HPF (0-5)
[2019-04-27 16:51] VITALS: BP 105/55
[2019-04-27] MEDS: QUEtiapine FUMARATE 300 MG TABLET PO SCH (21:36)
[2019-04-28] MEDS: LEVOTHYROXINE SODIUM 50 MCG TABLET PO SCH (06:41)
[2019-04-28] MEDS: FLUTICASONE PROPIONATE 50 MCG/SPRAY 16 GM NASAL SPRAY NASAL SCH ×2 (08:08→21:23)
[2019-04-28] MEDS: NICOTINE 14 MG/24 HOUR PATCH TD SCH (08:11)
[2019-04-28] MEDS: INTROVALE PO SCH (08:12)
[2019-04-28] MEDS: LamoTRIgine 25 MG TABLET PO SCH (08:14)
[2019-04-28 08:37] VITALS: BP 98/60
[2019-04-28 16:17] VITALS: BP 107/65
[2019-04-28] MEDS: QUEtiapine FUMARATE 300 MG TABLET PO SCH (21:23)
[2019-04-29] MEDS: LEVOTHYROXINE SODIUM 50 MCG TABLET PO SCH (06:47)
[2019-04-29 08:00] VITALS: BP 104/65
[2019-04-29] MEDS: LamoTRIgine 25 MG TABLET PO SCH (08:17)
[2019-04-29] MEDS: INTROVALE PO SCH (08:17)
[2019-04-29] MEDS: FLUTICASONE PROPIONATE 50 MCG/SPRAY 16 GM NASAL SPRAY NASAL SCH ×2 (08:17→22:00)
[2019-04-29] MEDS: NICOTINE 14 MG/24 HOUR PATCH TD SCH (08:40)
[2019-04-29 16:15] VITALS: BP 112/89
[2019-04-29] MEDS: QUEtiapine FUMARATE 300 MG TABLET PO SCH (22:00)
[2019-04-30] MEDS: LEVOTHYROXINE SODIUM 50 MCG TABLET PO SCH (06:46)
[2019-04-30] MEDS: INTROVALE PO SCH (08:57)
[2019-04-30] MEDS: NICOTINE 14 MG/24 HOUR PATCH TD SCH (08:57)
[2019-04-30] MEDS: LamoTRIgine 25 MG TABLET PO SCH (08:57)
[2019-04-30] MEDS: FLUTICASONE PROPIONATE 50 MCG/SPRAY 16 GM NASAL SPRAY NASAL SCH ×2 (08:57→21:10)
[2019-04-30 16:05] VITALS: BP 116/78
[2019-04-30] MEDS: QUEtiapine FUMARATE 300 MG TABLET PO SCH (21:10)
[2019-05-01] MEDS: LEVOTHYROXINE SODIUM 50 MCG TABLET PO SCH (06:31)
[2019-05-01] MEDS: NICOTINE 14 MG/24 HOUR PATCH TD SCH (08:22)
[2019-05-01] MEDS: LamoTRIgine 25 MG TABLET PO SCH (08:23)
[2019-05-01] MEDS: INTROVALE PO SCH (08:23)
[2019-05-01] MEDS: FLUTICASONE PROPIONATE 50 MCG/SPRAY 16 GM NASAL SPRAY NASAL SCH ×2 (08:24→21:29)
[2019-05-01 08:29] VITALS: BP 91/72
[2019-05-01] MEDS ORDERED: TUBERCULIN, PURIFIED PROTEIN DERIVATIVE 5 TU/0.1 ML SYRINGE ID ONE (09:00)
[2019-05-01 18:22] VITALS: BP 118/81
[2019-05-01] MEDS: QUEtiapine FUMARATE 300 MG TABLET PO SCH (21:28)
[2019-05-02] MEDS: LEVOTHYROXINE SODIUM 50 MCG TABLET PO SCH (06:57)
[2019-05-02] MEDS: LamoTRIgine 25 MG TABLET PO SCH (08:10)
[2019-05-02] MEDS: INTROVALE PO SCH (08:11)
[2019-05-02] MEDS: FLUTICASONE PROPIONATE 50 MCG/SPRAY 16 GM NASAL SPRAY NASAL SCH ×2 (08:11→20:28)
[2019-05-02] MEDS: NICOTINE 14 MG/24 HOUR PATCH TD SCH (08:11)
[2019-05-02 12:14] VITALS: BP 109/64
[2019-05-02] MEDS: MAGNESIUM HYDROXIDE SUSPENSION 30 ML UDCUP PO PRN (12:30)
[2019-05-02 18:37] VITALS: BP 116/72
[2019-05-02] MEDS: QUEtiapine FUMARATE 300 MG TABLET PO SCH (20:29)
[2019-05-03] MEDS: LEVOTHYROXINE SODIUM 50 MCG TABLET PO SCH (06:59)
[2019-05-03] MEDS: FLUTICASONE PROPIONATE 50 MCG/SPRAY 16 GM NASAL SPRAY NASAL SCH ×2 (08:31→21:44)
[2019-05-03] MEDS: LamoTRIgine 25 MG TABLET PO SCH (08:32)
[2019-05-03] MEDS: NICOTINE 14 MG/24 HOUR PATCH TD SCH (08:32)
[2019-05-03] MEDS: INTROVALE PO SCH (08:33)
[2019-05-03 10:10] VITALS: BP 117/60
[2019-05-03 16:02] VITALS: BP 107/52
[2019-05-03] MEDS: QUEtiapine FUMARATE 300 MG TABLET PO SCH (21:44)
[2019-05-04] MEDS: LEVOTHYROXINE SODIUM 50 MCG TABLET PO SCH (06:51)
[2019-05-04] MEDS: INTROVALE PO SCH (09:05)
[2019-05-04] MEDS: NICOTINE 14 MG/24 HOUR PATCH TD SCH (09:07)
[2019-05-04] MEDS: FLUTICASONE PROPIONATE 50 MCG/SPRAY 16 GM NASAL SPRAY NASAL SCH ×2 (09:07→21:13)
[2019-05-04 13:57] VITALS: BP 105/66
[2019-05-04] MEDS: LamoTRIgine 100 MG TABLET PO SCH (21:12)
[2019-05-04] MEDS: QUEtiapine FUMARATE 300 MG TABLET PO SCH (21:13)
[2019-05-05] MEDS: LEVOTHYROXINE SODIUM 50 MCG TABLET PO SCH (06:57)
[2019-05-05] MEDS: FLUTICASONE PROPIONATE 50 MCG/SPRAY 16 GM NASAL SPRAY NASAL SCH ×2 (07:58→21:31)
[2019-05-05] MEDS: INTROVALE PO SCH (07:58)
[2019-05-05] MEDS: NICOTINE 14 MG/24 HOUR PATCH TD SCH (07:58)
[2019-05-05 08:00] VITALS: BP 101/60
[2019-05-05] MEDS: QUEtiapine FUMARATE 300 MG TABLET PO SCH (21:31)
[2019-05-05] MEDS: LamoTRIgine 100 MG TABLET PO SCH (21:31)
[2019-05-06] MEDS: LEVOTHYROXINE SODIUM 50 MCG TABLET PO SCH (06:56)
[2019-05-06] MEDS: INTROVALE PO SCH (08:42)
[2019-05-06] MEDS: NICOTINE 14 MG/24 HOUR PATCH TD SCH (08:42)
[2019-05-06] MEDS: FLUTICASONE PROPIONATE 50 MCG/SPRAY 16 GM NASAL SPRAY NASAL SCH ×2 (08:42→21:43)
[2019-05-06 08:45] VITALS: BP 124/79
[2019-05-06 19:45] VITALS: BP 131/82
[2019-05-06] MEDS: LamoTRIgine 100 MG TABLET PO SCH (21:43)
[2019-05-06] MEDS: QUEtiapine FUMARATE 300 MG TABLET PO SCH (21:43)
[2019-05-07] MEDS: LEVOTHYROXINE SODIUM 50 MCG TABLET PO SCH (06:47)
[2019-05-07] MEDS: NICOTINE 14 MG/24 HOUR PATCH TD SCH (08:35)
[2019-05-07] MEDS: FLUTICASONE PROPIONATE 50 MCG/SPRAY 16 GM NASAL SPRAY NASAL SCH ×2 (08:35→21:38)
[2019-05-07] MEDS: INTROVALE PO SCH (08:35)
[2019-05-07 09:44] VITALS: BP 127/78
[2019-05-07 16:25] VITALS: BP 134/70
[2019-05-07] MEDS: QUEtiapine FUMARATE 300 MG TABLET PO SCH (21:38)
[2019-05-07] MEDS: LamoTRIgine 100 MG TABLET PO SCH (21:38)
[2019-05-08] MEDS: LEVOTHYROXINE SODIUM 50 MCG TABLET PO SCH (06:43)
[2019-05-08] MEDS: NICOTINE 14 MG/24 HOUR PATCH TD SCH (09:00)
[2019-05-08] MEDS: FLUTICASONE PROPIONATE 50 MCG/SPRAY 16 GM NASAL SPRAY NASAL SCH ×2 (09:00→21:38)
[2019-05-08] MEDS: INTROVALE PO SCH (09:01)
[2019-05-08 12:36] VITALS: BP 95/61
[2019-05-08] MEDS: MAGNESIUM HYDROXIDE SUSPENSION 30 ML UDCUP PO PRN (15:20)
[2019-05-08 16:39] VITALS: BP 95/64
[2019-05-08] MEDS: LamoTRIgine 100 MG TABLET PO SCH (21:38)
[2019-05-08] MEDS: QUEtiapine FUMARATE 300 MG TABLET PO SCH (21:38)
[2019-05-09] MEDS: LEVOTHYROXINE SODIUM 50 MCG TABLET PO SCH (06:50)
[2019-05-09 08:02] VITALS: BP 98/64
[2019-05-09] MEDS: INTROVALE PO SCH (08:09)
[2019-05-09] MEDS: FLUTICASONE PROPIONATE 50 MCG/SPRAY 16 GM NASAL SPRAY NASAL SCH ×2 (08:09→21:36)
[2019-05-09] MEDS: NICOTINE 14 MG/24 HOUR PATCH TD SCH (08:21)
[2019-05-09 16:47] VITALS: BP 95/51
[2019-05-09] MEDS: MAGNESIUM HYDROXIDE SUSPENSION 30 ML UDCUP PO PRN (17:07)
[2019-05-09] MEDS: LamoTRIgine 100 MG TABLET PO SCH (21:35)
[2019-05-09] MEDS: QUEtiapine FUMARATE 300 MG TABLET PO SCH (21:36)
[2019-05-10] MEDS: LEVOTHYROXINE SODIUM 50 MCG TABLET PO SCH (06:54)
[2019-05-10 08:08] VITALS: BP 100/60
[2019-05-10] MEDS: INTROVALE PO SCH (08:17)
[2019-05-10] MEDS: FLUTICASONE PROPIONATE 50 MCG/SPRAY 16 GM NASAL SPRAY NASAL SCH ×2 (08:18→21:50)
[2019-05-10] MEDS: NICOTINE 14 MG/24 HOUR PATCH TD SCH (08:18)
[2019-05-10 16:46] VITALS: BP 105/77
[2019-05-10] MEDS: QUEtiapine FUMARATE 300 MG TABLET PO SCH (21:50)
[2019-05-10] MEDS: LamoTRIgine 100 MG TABLET PO SCH (21:50)
[2019-05-11] MEDS: LEVOTHYROXINE SODIUM 50 MCG TABLET PO SCH (06:47)
[2019-05-11] MEDS: FLUTICASONE PROPIONATE 50 MCG/SPRAY 16 GM NASAL SPRAY NASAL SCH ×2 (08:01→21:25)
[2019-05-11] MEDS: NICOTINE 14 MG/24 HOUR PATCH TD SCH (08:01)
[2019-05-11] MEDS: INTROVALE PO SCH (08:02)
[2019-05-11] MEDS: LIOTHYRONINE SODIUM 5 MCG TABLET PO SCH (09:44)
[2019-05-11 10:04] VITALS: BP 94/59
[2019-05-11 21:18] VITALS: BP 124/77
[2019-05-11] MEDS: QUEtiapine FUMARATE 300 MG TABLET PO SCH (21:25)
[2019-05-11] MEDS: LamoTRIgine 100 MG TABLET PO SCH (21:25)
[2019-05-12] MEDS: LEVOTHYROXINE SODIUM 50 MCG TABLET PO SCH (06:36)
[2019-05-12] MEDS: LIOTHYRONINE SODIUM 5 MCG TABLET PO SCH (06:36)
[2019-05-12] MEDS: INTROVALE PO SCH (08:17)
[2019-05-12] MEDS: FLUTICASONE PROPIONATE 50 MCG/SPRAY 16 GM NASAL SPRAY NASAL SCH (08:19)
[2019-05-12] MEDS: NICOTINE 14 MG/24 HOUR PATCH TD SCH (08:19)
[2019-05-12 10:14] VITALS: BP 106/69
[2019-05-12] MEDS ORDERED: QUET300T2 PO (10:57)
[2019-05-12] MEDS ORDERED: LAMO100 PO (10:57)
[2019-05-12] MEDS ORDERED: FLUT16H NASAL (11:04)
[2019-05-12] MEDS ORDERED: LEVO50 PO (11:16)
[2019-05-12] MEDS ORDERED: LIOT5 PO (11:17)
[2019-05-12] MEDS ORDERED: LEVO1TBD6 PO (11:18)
== END 2019-05-12 12:40 | DRG 885 ==
LOC: EMS 13:20 → 3EC 03-14 05:30
DX: F31.64 Bipolar disorder, current episode mixed, severe, with psychotic features (principal); N39.0 Urinary tract infection, site not specified; E03.9 Hypothyroidism, unspecified; F10.10 Alcohol abuse, uncomplicated; F41.9 Anxiety disorder, unspecified; K59.00 Constipation, unspecified; F17.210 Nicotine dependence, cigarettes, uncomplicated; Z79.899 Other long term (current) drug therapy; Z91.19 Patient's noncompliance with other medical treatment and regimen; Z88.0 Allergy status to penicillin; Z88.2 Allergy status to sulfonamides
CPT/HCPCS: 84439; 84443; 84481; 87081; 87086; 93005; 96372; 99406; G0480; G0481; J1200; J1630; J2060; Q0162